=== PATIENT | male | born 1990 | race Caucasian/White ===

== ENCOUNTER 2016-08-20 11:08 | Emergency (ER) | payer SELFPAY ==
[~2016-08-20] VITALS: Ht 180.3 cm
[~2016-08-20 11:08] MED LIST: ATARAX,VISTARIL50 MG PO; BACTRIM DS 8001 TA1 PO; CIPRO500 MG PO; CLARITIN10 MG PO; CLEOCIN150 MG PO; CYCLOBENZAPRINE10 MG PO; FLONASE ALLERG9.9 ML NAS; HYDROCODONE BIT1 T11 PO; IBU-6600 MG PO; IBU-8800 MG PO; KEFLEX500 MG PO; KENALOG 0.1%80 GM T; MOTRIN600 MG PO; MOTRIN800 MG PO; NAPROSYN500 MG PO; NKHM; PHENERGAN25 M1 PO; PREDNISONE10 MG PO; PREDNISONE20 M1 PO; ROBITUSSIN AC 110 ML PO; TOBREX OPHTH S2.5 ML OPH; VIBRAMYCIN100 MG PO; ZANTAC 150150 MG PO; ZITHROMAX Z PA250 MG PO
[2016-08-20] MEDS ORDERED: FLONASE ALLERG9.9 ML NAS (11:24)
[2016-08-20] MEDS ORDERED: CLARITIN10 MG PO (11:24)
[2016-08-20] MEDS ORDERED: PREDNISONE10 MG PO (11:24)
== END 2016-08-20 12:04 | disposition home or self-care (01) ==
LOC: ED 11:08
DX: J30.2 Other seasonal allergic rhinitis (principal); R03.0 Elevated blood-pressure reading, without diagnosis of hypertension; F17.200 Nicotine dependence, unspecified, uncomplicated; K21.9 Gastro-esophageal reflux disease without esophagitis; Z90.49 Acquired absence of other specified parts of digestive tract; Z79.899 Other long term (current) drug therapy